=== PATIENT | male | born 1950 | race Hispanic/Latino ===

== ENCOUNTER 2020-11-02 15:41 | Emergency (ER) | payer MEDICARE ==
[~2020-11-02] VITALS: Ht 170.2 cm; Wt 77.1 kg
[2020-11-02] MEDS ORDERED: LIDOCAINE HCL 1% LOCAL INJ 20 ML VIAL INJ ONE (16:15)
[2020-11-02] MEDS ORDERED: CEPHALEXIN500 MG PO (17:09)
== END 2020-11-02 18:06 | disposition home or self-care (01) ==
LOC: ER 15:49
DX: S61.216A Laceration without foreign body of right little finger without damage to nail, initial encounter (principal); W29.3XXA Contact with powered garden and outdoor hand tools and machinery, initial encounter; Y92.008 Other place in unspecified non-institutional (private) residence as the place of occurrence of the external cause
CPT/HCPCS: 12002; 73140; 99283; J2001

== ENCOUNTER 2020-11-07 12:23 | Emergency (ER) | payer MEDICARE ==
[~2020-11-07] VITALS: Ht 170.2 cm; Wt 77.1 kg
[~2020-11-07 12:23] MED LIST: CEPHALEXIN500 MG PO
== END 2020-11-07 15:09 | disposition home or self-care (01) ==
LOC: ER 13:00
DX: Z48.01 Encounter for change or removal of surgical wound dressing (principal)
CPT/HCPCS: 99282